=== PATIENT | female | born 1965 ===

== ENCOUNTER 2019-09-08 18:02 | Emergency (ER) | payer OTHER ==
[~2019-09-08] VITALS: Ht 157.5 cm; Wt 90.7 kg
[~2019-09-08 18:02] MED LIST: AUGMENTIN ES-6200 ML PO; BENADRYL25 MG PO; FOLIC ACID1 MG PO; HYZAAR 100-251 UDTAB; LODINE XL500 MG PO; MEDROL4 MG PO; METROTEXATE PO; PEPCID40 MG PO; PLAQUENIL PO; SYNTHROID200 MCG; TRIACTIN50 MG/5 ML PO; ULTRACET PO; ZESTORETIC 20-1 EAC1
[2019-09-08] MEDS ORDERED: PROAIR HFA8.5 GM (18:37)
[2019-09-08] MEDS ORDERED: NORVASC5 MG (18:38)
== END 2019-09-08 20:57 | disposition home or self-care (01) ==
LOC: ER
DX: B34.9 Viral infection, unspecified (principal)

== ENCOUNTER 2019-10-11 08:28 | Outpatient (CLI) | payer OTHER ==
[~2019-10-11 08:28] MED LIST changes: +NORVASC5 MG; +PROAIR HFA8.5 GM
== END 2019-10-11 08:41 | disposition home or self-care (01) ==
LOC: NUCLEAR 08:28
DX: R06.02 Shortness of breath (principal)

== ENCOUNTER 2019-10-12 07:16 | Outpatient (CLI) | payer OTHER | END 2019-10-12 07:34 | disposition home or self-care (01) | LOC: NUCLEAR 07:16 | DX: I25.10 Atherosclerotic heart disease of native coronary artery without angina pectoris (principal) | CPT/HCPCS: 78452; 93017; A9500 ==

== ENCOUNTER 2021-06-25 08:00 | Outpatient (CLI) | payer OTHER | END 2021-06-25 08:30 | disposition home or self-care (01) | LOC: PPH VACUNA 08:00 | PROVIDERS: ATTEND Emergency Medicine Pediatric Emergency Medicine | DX: Z23 Encounter for immunization (principal) ==